=== PATIENT | female | born 1930 | race Asian ===

== ENCOUNTER 2018-10-02 18:57 | Inpatient (IN) | payer OTHER, BC ==
[~2018-10-02] VITALS: Ht 149.9 cm; Wt 85.3 kg
[2018-10-02 19:02] VITALS: Ht 149.9 cm; Wt 85.3 kg
[2018-10-02 20:03] LABS: BASOPHIL % 0.3 % (0-2); PLATELET COUNT 346 x10^3mcL (130-400)
[2018-10-02 20:12] LABS: RED CELL DISTRIBUTION WIDTH 17.5 % (11.5-14.5)
[2018-10-02 20:24] LABS: ALKALINE PHOSPHATASE 74 U/L (46-116); ALT/SGPT 28 U/L (14-59); AST/SGOT 27 U/L (15-37); BILIRUBIN TOTAL 0.4 mg/dL (0.20-1.00); C REACTIVE PROTEIN 1.7 mg/dL (<=0.9); CALCIUM 9.2 mg/dL (8.5-10.1); CHLORIDE SERUM 105 mmol/L (98-107); GLUCOSE SERUM 166 mg/dL (74-106); POTASSIUM SERUM 3.7 mmol/L (3.5-5.1); SODIUM SERUM 144 mmol/L (136-145)
[2018-10-02 20:26] LABS: T3 TOTAL 0.63 ng/mL
[2018-10-02 20:27] LABS: ALBUMIN 3.2 g/dL (3.4-5.0); FREE T4 2.97 ng/dL (0.76-1.46); FREE THYROXINE INDEX 4.8 ug/dL (1.4-4.5); T4(THYROXINE) 11.6 ug/dL (4.7-13.3)
[2018-10-02 20:29] VITALS: BP 109/64
[2018-10-02 20:44] LABS: CK-MB 1.1 ng/mL (0-3.6)
[2018-10-02 20:54] LABS: ERYTHROCYTE SED RATE 49 mm/hr (0-30)
[2018-10-02 22:29] LABS: microscopic required? YES; urine erythrocyte NEGATIVE (NEGATIVE)
[2018-10-02] MEDS ORDERED: GOOD SENSE ASPI81 M3 PO (23:16)
[2018-10-02] MEDS ORDERED: LIPITOR40 MG PO (23:16)
[2018-10-02 23:18] VITALS: BP 109/64
[2018-10-02] MEDS ORDERED: ELIQUIS2.5 MG PO (23:18)
[2018-10-02 23:20] VITALS: BP 137/82
[2018-10-02] MEDS ORDERED: HYDRALAZINE HCL25 MG PO (23:21)
[2018-10-02] MEDS ORDERED: METOPROLOL TART50 MG PO (23:22)
[2018-10-02] MEDS ORDERED: MINOXIDIL2.5 MG PO (23:23)
[2018-10-02] MEDS ORDERED: CLONIDINE HCL0.2 MG TD (23:26)
[2018-10-02 23:30] VITALS: BP 137/82
[2018-10-02] MEDS ORDERED: CIPRO500 MG PO (23:30)
[2018-10-02] MEDS ORDERED: FERROUS SULFAT325 M2 PO (23:33)
[2018-10-02] MEDS ORDERED: DULCOLAX10 M1 RC (23:39)
[2018-10-02] MEDS ORDERED: FLEET ENEMA135 ML PR (23:40)
[2018-10-02] MEDS ORDERED: GOOD NEIGH1200 MG/15 (23:45)
[2018-10-02] MEDS ORDERED: ACETAMINOP160 MG/52 PO (23:47)
[2018-10-02] MEDS ORDERED: CLONIDINE HCL0.1 MG PO (23:50)
[2018-10-02] MEDS ORDERED: LOMOTIL1 TAB PO (23:50)
[2018-10-03] VITALS (19 sets, daily range): BP systolic 52–137; BP diastolic 36–85
[2018-10-03 02:58] LABS: PHOSPHOROUS 6.4 mg/dL (2.5-4.9)
[2018-10-03 03:00] LABS: CHOLESTEROL/HDL RATIO 1.9
[2018-10-03 03:01] LABS: MAGNESIUM 4.2 mg/dL (1.8-2.4)
[2018-10-03 05:35] LABS: PLATELET COUNT 239 x10^3mcL (130-400)
[2018-10-03 05:48] LABS: RED CELL DISTRIBUTION WIDTH 20.4 % (11.5-14.5)
[2018-10-03 05:56] LABS: ALKALINE PHOSPHATASE 54 U/L (46-116); ALT/SGPT 30 U/L (14-59); AST/SGOT 44 U/L (15-37); BILIRUBIN TOTAL 0.5 mg/dL (0.20-1.00); CALCIUM 6.8 mg/dL (8.5-10.1); CARBON DIOXIDE 19.6 mmol/L (21-32); CHLORIDE SERUM 108 mmol/L (98-107); GLUCOSE SERUM 204 mg/dL (74-106); MAGNESIUM 3.2 mg/dL (1.8-2.4); PHOSPHOROUS 5.9 mg/dL (2.5-4.9); SODIUM SERUM 144 mmol/L (136-145)
[2018-10-03 05:57] LABS: TOTAL PROTEIN, SERUM 5.6 g/dL (6.4-8.2)
[2018-10-03 05:59] LABS: CREATININE SERUM 4.6 mg/dL (0.6-1.0); POTASSIUM SERUM 2.9 mmol/L (3.5-5.1)
[2018-10-03 06:12] LABS: BAND NEUTROPHIL 5 % (0-10); MONOCYTE 5 % (0-7); PLATELET MORPHOLOGY PLATELETS NORMAL; SEGMENTED NEUTROPHILS 70 % (37-75); rbc morphology (normal/abnorm) ABNORMAL (NORMAL)
[2018-10-03 11:29] LABS: AMPHETAMINE QUAL UR NONE DETECTED (See below)
[2018-10-03 18:39] LABS: PLATELET COUNT 175 x10^3mcL (130-400)
[2018-10-03 18:44] LABS: RED CELL DISTRIBUTION WIDTH 20.2 % (11.5-14.5)
[2018-10-03 18:59] LABS: BAND NEUTROPHIL 6 % (0-10); BASOPHIL 0 % (0-2); MONOCYTE 3 % (0-7); SEGMENTED NEUTROPHILS 77 % (37-75)
[2018-10-03 19:00] LABS: burr cell (echinocyte) 1+; rbc morphology (normal/abnorm) ABNORMAL (NORMAL)
[2018-10-03 19:01] LABS: ovalocyte/elliptocyte 1+
[2018-10-04] VITALS (18 sets, daily range): BP systolic 80–143; BP diastolic 24–83
[2018-10-04 05:44] LABS: PLATELET COUNT 156 x10^3mcL (130-400)
[2018-10-04 06:04] LABS: RED CELL DISTRIBUTION WIDTH 20.7 % (11.5-14.5)
[2018-10-04 06:07] LABS: BAND NEUTROPHIL 2 % (0-10); SEGMENTED NEUTROPHILS 90 % (37-75); rbc morphology (normal/abnorm) ABNORMAL (NORMAL)
[2018-10-04 06:10] LABS: CARBON DIOXIDE 23.1 mmol/L (21-32); CHLORIDE SERUM 103 mmol/L (98-107); GLUCOSE SERUM 131 mg/dL (74-106); MAGNESIUM 3.3 mg/dL (1.8-2.4); PHOSPHOROUS 5.2 mg/dL (2.5-4.9); SODIUM SERUM 139 mmol/L (136-145)
[2018-10-04 06:16] LABS: CREATININE SERUM 5.3 mg/dL (0.6-1.0)
[2018-10-05] VITALS (18 sets, daily range): BP systolic 76–142; BP diastolic 34–69
[2018-10-05 05:55] LABS: PLATELET COUNT 123 x10^3mcL (130-400); RED CELL DISTRIBUTION WIDTH 21.4 % (11.5-14.5)
[2018-10-05 06:00] LABS: ALKALINE PHOSPHATASE 87 U/L (46-116); ALT/SGPT 30 U/L (14-59); AST/SGOT 67 U/L (15-37); BILIRUBIN TOTAL 0.8 mg/dL (0.20-1.00); CALCIUM 6.5 mg/dL (8.5-10.1); CARBON DIOXIDE 26.4 mmol/L (21-32); CHLORIDE SERUM 95 mmol/L (98-107); GLUCOSE SERUM 131 mg/dL (74-106); MAGNESIUM 3.3 mg/dL (1.8-2.4); POTASSIUM SERUM 4.1 mmol/L (3.5-5.1); SODIUM SERUM 134 mmol/L (136-145)
[2018-10-05 06:04] LABS: ALBUMIN 1.8 g/dL (3.4-5.0); TOTAL PROTEIN, SERUM 5.9 g/dL (6.4-8.2)
[2018-10-05 06:05] LABS: CREATININE SERUM 5.8 mg/dL (0.6-1.0)
[2018-10-05 06:07] LABS: BAND NEUTROPHIL 5 % (0-10); MONOCYTE 2 % (0-7); SEGMENTED NEUTROPHILS 80 % (37-75)
[2018-10-05 06:08] LABS: PLATELET MORPHOLOGY PLATELETS DECREASED; rbc morphology (normal/abnorm) ABNORMAL (NORMAL)
[2018-10-05 13:30] LABS: CALCIUM 6.3 mg/dL (8.5-10.1); CARBON DIOXIDE 28.9 mmol/L (21-32); CHLORIDE SERUM 93 mmol/L (98-107); CREATININE SERUM 6.1 mg/dL (0.6-1.0); GLUCOSE SERUM 122 mg/dL (74-106); POTASSIUM SERUM 4.3 mmol/L (3.5-5.1); SODIUM SERUM 129 mmol/L (136-145)
[2018-10-06] VITALS (18 sets, daily range): BP systolic 95–130; BP diastolic 40–70
[2018-10-06 05:55] LABS: PLATELET COUNT 90 x10^3mcL (130-400); RED CELL DISTRIBUTION WIDTH 21.3 % (11.5-14.5)
[2018-10-06 06:08] LABS: CALCIUM 6.5 mg/dL (8.5-10.1); CARBON DIOXIDE 28.3 mmol/L (21-32); CHLORIDE SERUM 92 mmol/L (98-107); MAGNESIUM 3.5 mg/dL (1.8-2.4); POTASSIUM SERUM 5.2 mmol/L (3.5-5.1); SODIUM SERUM 128 mmol/L (136-145)
[2018-10-06 06:11] LABS: CREATININE SERUM 6.3 mg/dL (0.6-1.0); GLUCOSE SERUM 59 mg/dL (74-106)
[2018-10-06 06:21] LABS: BAND NEUTROPHIL 8 % (0-10); METAMYELOCTE 11 % (0-2); MONOCYTE 2 % (0-7); MYELOCYTE 2 % (0-2); SEGMENTED NEUTROPHILS 70 % (37-75)
[2018-10-06 06:23] LABS: rbc morphology (normal/abnorm) ABNORMAL (NORMAL); target cell (codocyte) 2+
[2018-10-06 06:24] LABS: PLATELET MORPHOLOGY PLATELETS DECREASED
[2018-10-07] VITALS (17 sets, daily range): BP systolic 97–122; BP diastolic 44–56
[2018-10-08] VITALS (14 sets, daily range): BP systolic 92–130; BP diastolic 39–61
[2018-10-08 03:49] LABS: CALCIUM IONIZED 3.4 mg/dL (4.5-5.6)
[2018-10-08 05:54] LABS: PLATELET COUNT 76 x10^3mcL (130-400); RED CELL DISTRIBUTION WIDTH 23.7 % (11.5-14.5)
[2018-10-08 06:01] LABS: BAND NEUTROPHIL 17 % (0-10); METAMYELOCTE 4 % (0-2); MONOCYTE 5 % (0-7); SEGMENTED NEUTROPHILS 70 % (37-75)
[2018-10-08 06:03] LABS: ovalocyte/elliptocyte 1+; rbc morphology (normal/abnorm) ABNORMAL (NORMAL); target cell (codocyte) 1+
[2018-10-08 06:04] LABS: PLATELET MORPHOLOGY PLATELETS DECREASED
[2018-10-08 06:15] LABS: CARBON DIOXIDE 22.5 mmol/L (21-32); CHLORIDE SERUM 87 mmol/L (98-107); GLUCOSE SERUM 126 mg/dL (74-106); MAGNESIUM 3.5 mg/dL (1.8-2.4); SODIUM SERUM 127 mmol/L (136-145)
[2018-10-08 06:29] LABS: PHOSPHOROUS 8.7 mg/dL (2.5-4.9)
[2018-10-08 06:40] LABS: CALCIUM 5.6 mg/dL (8.5-10.1); CREATININE SERUM 7.2 mg/dL (0.6-1.0); POTASSIUM SERUM 6.4 mmol/L (3.5-5.1)
== END 2018-10-08 22:32 | disposition expired | DRG 870 ==
LOC: ED 18:57 → IC 21:44
PROVIDERS: Internal Medicine; Internal Medicine Nephrology; Specialist
PROC: 5A1955Z Respiratory Ventilation, Greater than 96 Consecutive Hours (ICD-10-PCS; principal; 2018-10-02)
PROC: 0BH17EZ Insertion of Endotracheal Airway into Trachea, Via Natural or Artificial Opening (ICD-10-PCS; 2018-10-02)
PROC: 05HP33Z Insertion of Infusion Device into Right External Jugular Vein, Percutaneous Approach (ICD-10-PCS; 2018-10-02)
PROC: 06HY33Z Insertion of Infusion Device into Lower Vein, Percutaneous Approach (ICD-10-PCS; 2018-10-02)
DX: A41.9 Sepsis, unspecified organism (principal); N17.0 Acute kidney failure with tubular necrosis; J69.0 Pneumonitis due to inhalation of food and vomit; J96.01 Acute respiratory failure with hypoxia; C85.90 Non-Hodgkin lymphoma, unspecified, unspecified site; K92.2 Gastrointestinal hemorrhage, unspecified; I69.354 Hemiplegia and hemiparesis following cerebral infarction affecting left non-dominant side; E44.1 Mild protein-calorie malnutrition; N18.4 Chronic kidney disease, stage 4 (severe); D62 Acute posthemorrhagic anemia; N39.0 Urinary tract infection, site not specified; I48.92 Unspecified atrial flutter; R57.1 Hypovolemic shock; R65.20 Severe sepsis without septic shock; E83.41 Hypermagnesemia; I12.9 Hypertensive chronic kidney disease with stage 1 through stage 4 chronic kidney disease, or unspecified chronic kidney disease; I48.91 Unspecified atrial fibrillation; R80.9 Proteinuria, unspecified; I25.10 Atherosclerotic heart disease of native coronary artery without angina pectoris; Z66 Do not resuscitate; I25.2 Old myocardial infarction; I69.391 Dysphagia following cerebral infarction; Z68.32 Body mass index [BMI] 32.0-32.9, adult; Z96.653 Presence of artificial knee joint, bilateral; Z85.030 Personal history of malignant carcinoid tumor of large intestine
CPT/HCPCS: 31500; 36600; 83880; 84439; A4628; C9113; C9132; J0282; J0610; J1450; J1610; J1885; J1940; J2250; J2310; J2370; J2405; J2543; J2765; J3010; J3370; J3480; J3490; J7030; J7040; J7060; J7613; J7620; J7626; J7644; P9016; Q0092